=== PATIENT | female | born 1975 | race Caucasian/White ===

== ENCOUNTER 2019-12-15 01:48 | Emergency (ER) | payer OTHER ==
[~2019-12-15] VITALS: Ht 154.9 cm; Wt 72.0 kg
[2019-12-15] MEDS ORDERED: OMEP10SU2 PO (02:01)
--- NOTE | 2019-12-15 02:01 | NUR ---
Break RN: YVES JIMENEZ d/t anxiety. Pt very tearful, pacing room, needs redirection and simple verbal commands. Pt reports other episodes of anxiety for which she just "waits it out". No PRN or daily meds except prilosec. Pt reports being anemic and a loss of 2-3 pints of blood. Pt concerned she has embolism and needs to keep moving. Pt cannot tell this RN whom told her she has an embolism. Pt reports having respiratory cold.
[2019-12-15 02:18] LABS: BASOPHILS # (AUTO) 0.03 x10^3/uL (0-0.1); BASOPHILS % (AUTO) 1 % (0-1); EOSINOPHILS # (AUTO) 0.08 x10^3/uL (0-0.4); EOSINOPHILS % (AUTO) 2 % (1-7); LYMPHOCYTES # (AUTO) 1.87 x10^3/uL (1-3.4); LYMPHOCYTES % (AUTO) 42 % (22-44); MD NO; MEAN CORPUSCULAR HEMOGLOBIN 19.7 pg (27.0-34.8); MEAN CORPUSCULAR VOLUME 63.7 fL (80-100); MEAN PLATELET VOLUME 7.8 fL (7.4-10.4); MONOCYTES # (AUTO) 0.55 x10^3/uL (0.2-0.8); MONOCYTES % (AUTO) 12 % (2-9); NEUTROPHILS # (AUTO) 1.95 x10^3/uL (1.8-6.8); NEUTROPHILS % (AUTO) 44 % (42-75); PLATELET COUNT 208 x10^3/uL (130-400); RED BLOOD COUNT 5.12 x10^6/uL (3.82-5.3); RED CELL DISTRIBUTION WIDTH 18.8 % (9.6-15.2)
[2019-12-15 02:22] LABS: ALANINE AMINOTRANSFERASE 149 U/L (12-78); ALBUMIN 3.6 g/dL (3.4-5.0); ANION GAP 9 mmol/L (5-15); CHLORIDE 116 mmol/L (98-107); CREATININE 0.76 mg/dL (0.55-1.02)
[2019-12-15 02:27] LABS: ALKALINE PHOSPHATASE 75 U/L (45-117); BILIRUBIN,TOTAL 0.2 mg/dL (0.2-1.0); TOTAL PROTEIN 8.3 g/dL (6.4-8.2); TROPONIN I < 0.015 ng/mL (0.000-0.045)
[2019-12-15] MEDS ORDERED: BENZONATATE 100 MG CAPSULE ONE (03:16)
[2019-12-15] MEDS ORDERED: BENZONATATE 100 MG CAPSULE PO ONE (03:30)
[2019-12-15 03:32] LABS: AMPHETAMINE SCREEN, URINE Negative (Negative); BARBITURATE SCREEN, URINE Negative (Negative); BENZODIAZEPINE SCREEN, URINE Negative (Negative); CANNABINOID SCREEN, URINE Negative (Negative); COCAINE SCREEN, URINE Negative (Negative); METHADONE SCREEN, URINE Negative (Negative); OPIATE SCREEN, URINE Negative (Negative)
[2019-12-15 05:03] VITALS: BP 141/80
== END 2019-12-15 05:06 | disposition home or self-care (01) ==
LOC: ED 05:00
DX: R05 Cough (principal); F41.1 Generalized anxiety disorder; F10.120 Alcohol abuse with intoxication, uncomplicated; I10 Essential (primary) hypertension; Z72.9 Problem related to lifestyle, unspecified; Y90.9 Presence of alcohol in blood, level not specified
CPT/HCPCS: 36415; 71045; 80053; 80307; 84484; 85025; 93005; 99284

== ENCOUNTER 2020-04-16 19:18 | Emergency (ER) | payer BC ==
[~2020-04-16] VITALS: Ht 154.9 cm; Wt 69.0 kg
[~2020-04-16 19:18] MED LIST: OMEP10SU2 PO
[2020-04-16] MEDS ORDERED: ONDANSETRON 2MG/ML, 2ML ONE (19:52)
[2020-04-16] MEDS ORDERED: HYDROmorphone 1 MG/ML, 1ML INJ ONE (19:52)
[2020-04-16] MEDS ORDERED: SODIUM CHLORIDE FLUSH 10ML SYR IVF ONE (20:00)
[2020-04-16] MEDS ORDERED: ONDANSETRON 2MG/ML, 2ML IVPush ONE (20:00)
[2020-04-16] MEDS ORDERED: HYDROmorphone 1 MG/ML, 1ML INJ IVPush PRN (20:00)
--- NOTE | 2020-04-16 20:11 | NUR ---
THIS IS A 44 YO FEMALE C/O RIGHT KNEE PAIN AFTER SLIP[place]. PT MINIMALLY ABLE TO BEAR WEIGHT. PAIN WITH MOVEMENT AND PALPATION FROM HIP TO FOOT BUT PRIMARILY AROUND KNEE. SMALL QUARTER SIZE BRUISE TO RIGHT MID THIGH ABOVE KNEE. PT AO X 4. SKIN PWD. RESP EVEN AND UNLABORED. IV ACCESS ESTABLISHED AND PT MEDICATED ORDERED FOR PAIN. PT ON CONT BP AND SPO2 MONITORS. CALL LIGHT WITHIN REACH. WILL CONT TO MONITOR PT.
--- NOTE | 2020-04-16 20:49 | NUR ---
SLOANE KATZ AT BEDSIDE FOR RECHECK/EXPLANATION OF RESULTS.
[2020-04-16 21:21] VITALS: BP 151/87
== END 2020-04-16 21:53 | disposition home or self-care (01) ==
LOC: ED 21:43
DX: S80.01XA Contusion of right knee, initial encounter (principal); S90.01XA Contusion of right ankle, initial encounter; S90.31XA Contusion of right foot, initial encounter; I10 Essential (primary) hypertension; F17.210 Nicotine dependence, cigarettes, uncomplicated; W01.0XXA Fall on same level from slipping, tripping and stumbling without subsequent striking against object, initial encounter; Y93.89 Activity, other specified; Y92.830 Public park as the place of occurrence of the external cause; Y99.8 Other external cause status
CPT/HCPCS: 29505; 73564; 73610; 73630; 96374; 96375; 99284; J1170; J2405

== ENCOUNTER 2020-06-27 09:58 | Emergency (ER) | payer BC ==
[~2020-06-27] VITALS: Ht 154.9 cm; Wt 68.0 kg
[2020-06-27 10:00] VITALS: BP 166/90
[2020-06-27] MEDS ORDERED: LORazepam 2 MG/ML, 1ML ONE (10:39)
[2020-06-27] MEDS ORDERED: PROMETHAZINE 25 MG/ML, 1ML ONE (10:39)
[2020-06-27] MEDS ORDERED: LORazepam 2 MG/ML, 1ML IM ONE (11:00)
[2020-06-27] MEDS ORDERED: PROMETHAZINE 25 MG/ML, 1ML IM ONE (11:00)
--- NOTE | 2020-06-27 11:10 | NUR ---
pt up to restroom independently with strong steady gait. Provided with sanitation pad, and water per request. Denies further needs at this time, call light in reach.
--- NOTE | 2020-06-27 11:46 | NUR ---
PT RESTING IN BED, EYES CLOSED, NO FURTHER COMPLAINTS OF PAIN OR ANXIETY, PT NO LONGER TEARFUL. PT EDUCATED ON IMPORTANCE OF PRIMARY CARE FOLLOW UP TO MANAGE HER PANIC ATTACKS. VERBALIZES UNDERSTANDING AND DENIES ANY FURTHER NEEDS OR CONCERNS AT THIS TIME. PT TO DISCHARGE AT THIS TIME.
== END 2020-06-27 11:47 | disposition home or self-care (01) ==
LOC: ED 10:50
DX: R07.89 Other chest pain (principal); R00.0 Tachycardia, unspecified; F41.1 Generalized anxiety disorder; I11.9 Hypertensive heart disease without heart failure; R06.4 Hyperventilation; F17.200 Nicotine dependence, unspecified, uncomplicated
CPT/HCPCS: 71045; 93005; 96372; 99284; J2060; J2550

== ENCOUNTER 2020-07-02 10:08 | Emergency (ER) | payer BC ==
[~2020-07-02] VITALS: Ht 154.9 cm; Wt 67.1 kg
[2020-07-02] MEDS ORDERED: LORazepam 1MG TABLET ONE (10:36)
[2020-07-02] MEDS ORDERED: LORazepam 1MG TABLET PO ONE (11:00)
--- NOTE | 2020-07-02 11:36 | NUR ---
PT RESTING CALMLY IN BED WITH EYES CLOSED, AT BEDSIDE.
[2020-07-02 12:29] VITALS: BP 115/58
== END 2020-07-02 12:53 | disposition home or self-care (01) ==
LOC: ED 11:54
DX: F10.10 Alcohol abuse, uncomplicated (principal); F41.9 Anxiety disorder, unspecified; R07.89 Other chest pain; I10 Essential (primary) hypertension; Y90.0 Blood alcohol level of less than 20 mg/100 ml
CPT/HCPCS: 99283

== ENCOUNTER 2020-12-27 13:04 | Emergency (ER) | payer BC, OTHER ==
[~2020-12-27] VITALS: Ht 154.9 cm; Wt 61.0 kg
[2020-12-27] MEDS ORDERED: LORazepam 2 MG/ML, 1ML IVPush ONE (13:30)
[2020-12-27] MEDS ORDERED: SODIUM CHLORIDE FLUSH 10ML SYR IVF ONE (13:30)
[2020-12-27 13:40] LABS: BASOPHILS % (AUTO) 1 % (0-1); EOSINOPHILS % (AUTO) 2 % (1-7); LYMPHOCYTES % (AUTO) 36 % (22-44); MEAN CORPUSCULAR HGB CONC 31.5 g/dL (32.4-35.8); MEAN PLATELET VOLUME 7.1 fL (7.4-10.4); MONOCYTES % (AUTO) 11 % (2-9); NEUTROPHILS % (AUTO) 51 % (42-75); PLATELET COUNT 151 x10^3/uL (130-400); RED BLOOD COUNT 4.71 x10^6/uL (3.82-5.3); RED CELL DISTRIBUTION WIDTH 19.7 % (9.6-15.2)
[2020-12-27 13:52] LABS: ALBUMIN 3.7 g/dL (3.4-5.0); ANION GAP 11 mmol/L (5-15); CHLORIDE 111 mmol/L (98-107); CREATININE 0.75 mg/dL (0.55-1.02)
[2020-12-27 13:55] LABS: TROPONIN I < 0.015 ng/mL (0.000-0.045)
[2020-12-27 14:03] LABS: MD SCAN
--- NOTE | 2020-12-27 14:09 | NUR ---
First contact with pt. Pt reports that last night she was standing outside "and I guess I passed out, I woke up on the floor." Pt reports L sided JUAREZ and L arm pain after fall. Pt reports nausea as well. Pt A&O x4, denies any midline neck or back pain. Pt requesting tylenol for JUAREZ. Pt declines ativan and PIV insertion at this time. Pt states she has been diagnosed with HTN "but my doctor is trying to treat it holistically, with magneseum". Pt placed in gown and positioned for comfort in bed. Continuous oxygen and BP monitors applied, all safety measures observed.
[2020-12-27] MEDS ORDERED: ACETAMINOPHEN 325 MG TABLET ONE (14:44)
--- NOTE | 2020-12-27 14:47 | NUR ---
Dr. Coleman at bedside to evaluate pt. Pt requesting tylenol for her JUAREZ. Orders recieved from Dr. Coleman for tylenol 650mh PO. Pt medicated per order.
[2020-12-27 15:22] VITALS: BP 175/85
[2020-12-27] MEDS ORDERED: ACETAMINOPHEN 325 MG TABLET PO ONE (15:30)
== END 2020-12-27 15:23 | disposition home or self-care (01) ==
LOC: ED 15:15
DX: D64.9 Anemia, unspecified (principal); R51.9 Headache, unspecified; R07.9 Chest pain, unspecified; I10 Essential (primary) hypertension; R53.1 Weakness; R94.31 Abnormal electrocardiogram [ECG] [EKG]; R42 Dizziness and giddiness
CPT/HCPCS: 36415; 71045; 80048; 82040; 83880; 84484; 85025; 93005; 99285

== ENCOUNTER 2021-02-12 22:24 | Emergency (ER) | payer SELFPAY ==
[~2021-02-12] VITALS: Ht 154.9 cm; Wt 65.0 kg
--- NOTE | 2021-02-12 23:13 | NUR ---
LABS DRAWN AND SENT
--- NOTE | 2021-02-12 23:21 | NUR ---
PT IN ROOM AT THIS TIME, PRESENTS TO ED DUE TO RIGHT SIDED FLANK PAIN, TRICKLING URINATING AND PAIN RADIATES DOWN INTO GROIN. REPORTS IT STARTED BACK PAIN YESTERDAY AND THEN PROGRESSED TO FRONT LOWER RIGHT QUADRANT AND GROIN, PT CRYING AND MOAIN IN ROOM, IN THE POSITION, VOMITTING DUE TO PAIN. FABIO BARNES AT . PT PLACED ON SPO2/BP/ECG MONITORING. WCTM. BED IN LOWEST, RAILS ENGAGED, CALL LIGHT ON LAP.
[2021-02-12] MEDS ORDERED: KETOROLAC 30 MG/1 ML ONE (23:24)
[2021-02-12] MEDS ORDERED: KETOROLAC 30 MG/1 ML IVPush ONE (23:30)
[2021-02-12 23:35] LABS: BASOPHILS % (AUTO) 1 % (0-1); EOSINOPHILS % (AUTO) 2 % (1-7); LYMPHOCYTES % (AUTO) 52 % (22-44); MEAN CORPUSCULAR HEMOGLOBIN 21.6 pg (27.0-34.8); MEAN CORPUSCULAR HGB CONC 31.5 g/dL (32.4-35.8); MEAN PLATELET VOLUME 7.6 fL (7.4-10.4); MONOCYTES % (AUTO) 9 % (2-9); NEUTROPHILS % (AUTO) 36 % (42-75); PLATELET COUNT 137 x10^3/uL (130-400); RED BLOOD COUNT 5.09 x10^6/uL (3.82-5.3); RED CELL DISTRIBUTION WIDTH 18.9 % (9.6-15.2)
[2021-02-12 23:38] LABS: MD NO
--- NOTE | 2021-02-12 23:41 | NUR ---
pt medicated per jan, states "my pain is significantly better, i still have pressure but its a lot better". pt up to restroom for ua, nad, wctm. waiting for labs results and ct
[2021-02-12 23:42] LABS: ALBUMIN 3.8 g/dL (3.4-5.0); ANION GAP 7 mmol/L (5-15); CALCIUM 8.5 mg/dL (8.5-10.1); CHLORIDE 110 mmol/L (98-107); CREATININE 0.74 mg/dL (0.55-1.02)
[2021-02-13 00:19] LABS: MICROSCOPIC NOT IND
--- NOTE | 2021-02-13 00:38 | NUR ---
Break RN: patient returned from CT. No complaints at this time. Resting in gurney. Respirations even and unlabored.
[2021-02-13] MEDS ORDERED: OMNIPAQUE 350 MG/ML, 100ML BOTTLE ONE (00:58)
--- NOTE | 2021-02-13 01:09 | NUR ---
PT RESTING ON GURNEY, NAD, ON LEFT SIDE, EYES CLOSED, EVEN AND UNLABORED RESPIRATIONS, APPEARS COMFORTABLE, AWAITING CT READ, WCTM.
[2021-02-13 02:01] VITALS: BP 163/81
--- NOTE | 2021-02-13 02:02 | NUR ---
Patient given discharge instructions and they have confirmed that they understand the instructions. Patient ambulatory with steady gait. nad, denies additional questions or needs, no personal belongings left in room after dc.
== END 2021-02-13 02:16 | disposition home or self-care (01) ==
LOC: ED 02-13 02:00
DX: K59.00 Constipation, unspecified (principal); R10.84 Generalized abdominal pain; F17.210 Nicotine dependence, cigarettes, uncomplicated; I10 Essential (primary) hypertension
CPT/HCPCS: 36415; 74177; 80048; 81003; 82040; 84703; 85025; 87806; 96374; 99285; 99406; J1885; Q9967; G0475

== ENCOUNTER 2021-03-14 15:52 | Inpatient (IN) | payer OTHER ==
[~2021-03-14] VITALS: Ht 154.9 cm; Wt 65.0 kg
[2021-03-14] VITALS (7 sets, daily range): BP systolic 162–188; BP diastolic 60–83
--- NOTE | 2021-03-14 16:33 | NUR ---
SHEET METAL MECHANIC: PT TO ROOM FROM LOBBY
[2021-03-14] MEDS ORDERED: ONDANSETRON 2MG/ML, 2ML ONE (17:20)
[2021-03-14] MEDS ORDERED: KETOROLAC 30 MG/1 ML ONE (17:20)
[2021-03-14] MEDS ORDERED: SODIUM CHLORIDE FLUSH 10ML SYR IVF ONE (17:30)
[2021-03-14] MEDS ORDERED: SODIUM CHLORIDE 0.9% 1,000ML IV ONE (17:30)
[2021-03-14] MEDS ORDERED: ONDANSETRON 2MG/ML, 2ML IVPush ONE (17:30)
[2021-03-14] MEDS ORDERED: KETOROLAC 30 MG/1 ML IVPush ONE (17:30)
[2021-03-14 17:51] LABS: BASOPHILS % (AUTO) 1 % (0-1); EOSINOPHILS % (AUTO) 1 % (1-7); LYMPHOCYTES % (AUTO) 29 % (22-44); MEAN CORPUSCULAR HEMOGLOBIN 21.1 pg (27.0-34.8); MEAN CORPUSCULAR HGB CONC 30.4 g/dL (32.4-35.8); MEAN PLATELET VOLUME 6.5 fL (7.4-10.4); MONOCYTES % (AUTO) 10 % (2-9); NEUTROPHILS % (AUTO) 59 % (42-75); PLATELET COUNT 172 x10^3/uL (130-400); RED BLOOD COUNT 3.15 x10^6/uL (3.82-5.3); RED CELL DISTRIBUTION WIDTH 18.1 % (9.6-15.2)
[2021-03-14 17:57] LABS: MD MORPH REVIEW ONLY
[2021-03-14 18:03] LABS: ALBUMIN 3.7 g/dL (3.4-5.0); ANION GAP 8 mmol/L (5-15); CALCIUM 8.1 mg/dL (8.5-10.1); CHLORIDE 112 mmol/L (98-107); CREATININE 0.62 mg/dL (0.55-1.02)
[2021-03-14 18:08] LABS: ALKALINE PHOSPHATASE 61 U/L (45-117); BILIRUBIN,TOTAL 0.4 mg/dL (0.2-1.0)
[2021-03-14 18:16] LABS: ANISOCYTOSIS 1+
[2021-03-14 18:17] LABS: HYPOCHROMIA 2+; MICROCYTOSIS 2+
[2021-03-14 18:18] LABS: <PLATELET ESTIMATE> ADEQUATE; OVALOCYTES 1+; POLYCHROMASIA 1+
[2021-03-14 18:19] LABS: <PLT MORPHOLOGY> NORMAL PLT MORPH
[2021-03-14 18:37] LABS: ALANINE AMINOTRANSFERASE 28 U/L (12-78)
[2021-03-14] MEDS ORDERED: MORPHINE SULFATE 4 MG/ML, 1ML ONE ×2 (19:09→19:42)
[2021-03-14] MEDS: MORPHINE SULFATE 4 MG/ML, 1ML IVPush PRN ×2 (19:12→20:08)
--- NOTE | 2021-03-14 19:21 | NUR ---
REPORT TO EMILEE FRANCO.
[2021-03-14] MEDS ORDERED: DIPHENHYDRAMINE 50 MG/ML, 1ML ONE (19:50)
--- NOTE | 2021-03-14 20:00 | NUR ---
BLOOD TRANSFUSION STARTED AT 1928. PT STARTED TO COMPLAIN OF LOWER BACK PAIN AND CHEST PAIN AT 1942. TRANSFUSION STOPPED, PT GIVEN 50MG OF BENADRYL, DR. PAGE AND BLOOD BANK NOTIFIED. PT ALSO HAVING MILD EYE LID SWELLING. PT RESTING IN [facility], MONITORING IN PLACE, TM.
[2021-03-14] MEDS ORDERED: DIPHENHYDRAMINE 50 MG/ML, 1ML IV ONE (21:00)
[2021-03-14 21:05] LABS: MICROSCOPIC AUTO
[2021-03-14] MEDS ORDERED: CEFTRIAXONE 1,000 MG in DEXTROSE 5% 50 ML IVPB ONE (22:30)
[2021-03-15] VITALS (8 sets, daily range): BP systolic 145–174; BP diastolic 70–106
[2021-03-15] MEDS ORDERED: DOCUSATE 100 MG CAPSULE PO PRN
[2021-03-15] MEDS ORDERED: POLYETHYLENE GLYCOL 17 GM PACKET PO PRN
[2021-03-15] MEDS ORDERED: OXYcodone IR 5MG TABLET PO PRN
[2021-03-15] MEDS ORDERED: ONDANSETRON ODT 4 MG PO PRN
[2021-03-15] MEDS ORDERED: hydrALAzine 20 MG/ML, 1ML IVPush PRN
[2021-03-15] MEDS ORDERED: BISACODYL 10 MG SUPP PR PRN
[2021-03-15] MEDS ORDERED: ONDANSETRON 2MG/ML, 2ML IVPush PRN
[2021-03-15] MEDS ORDERED: PROMETHAZINE 25 MG/ML, 1ML IM PRN
[2021-03-15] MEDS ORDERED: OMEP20TA62 PO (00:48)
[2021-03-15] MEDS: CEFTRIAXONE 1,000 MG in DEXTROSE 5% 50 ML IVPB SCH (01:44)
[2021-03-15] MEDS: LOSARTAN 25MG TABLET PO SCH ×3 (01:44→19:31)
[2021-03-15 05:10] LABS: BASOPHILS % (AUTO) 1 % (0-1); EOSINOPHILS % (AUTO) 1 % (1-7); LYMPHOCYTES % (AUTO) 29 % (22-44); MEAN CORPUSCULAR HEMOGLOBIN 23.4 pg (27.0-34.8); MEAN CORPUSCULAR HGB CONC 31.7 g/dL (32.4-35.8); MEAN PLATELET VOLUME 6.8 fL (7.4-10.4); MONOCYTES % (AUTO) 9 % (2-9); NEUTROPHILS % (AUTO) 61 % (42-75); PLATELET COUNT 128 x10^3/uL (130-400); RED BLOOD COUNT 3.45 x10^6/uL (3.82-5.3); RED CELL DISTRIBUTION WIDTH 21.8 % (9.6-15.2)
[2021-03-15 05:14] LABS: MD NO
[2021-03-15 05:23] LABS: ALBUMIN 3.4 g/dL (3.4-5.0); ANION GAP 10 mmol/L (5-15); CALCIUM 7.3 mg/dL (8.5-10.1); CHLORIDE 107 mmol/L (98-107)
[2021-03-15 05:32] LABS: ALANINE AMINOTRANSFERASE 27 U/L (12-78); ALKALINE PHOSPHATASE 59 U/L (45-117); BILIRUBIN,TOTAL 0.7 mg/dL (0.2-1.0); CHOLESTEROL, TOTAL 230 mg/dL (140-239); HDL CHOL % 33 % (28-40); HDL CHOLESTEROL (DIRECT) 77 mg/dL (40-60); LDL CHOLESTEROL,CALCULATED 131 mg/dL (54-169); LDL/HDL RATIO 1.7 (0.5-3.0); TOTAL PROTEIN 7.9 g/dL (6.4-8.2); TRIGLYCERIDES 112 mg/dL (50-200); VLDL CHOLESTEROL 22 mg/dL (0-25)
[2021-03-15 05:54] LABS: TROPONIN I < 0.015 ng/mL (0.000-0.045)
[2021-03-15] MEDS: LABETALOL 5MG/ML, 20ML IVPush PRN (06:00)
[2021-03-15] MEDS: SODIUM CHLORIDE 0.9% 1,000 ML IV SCH ×2 (08:59)
[2021-03-15] MEDS: ACETAMINOPHEN 325 MG TABLET PO PRN ×2 (09:00→19:31)
[2021-03-15 13:41] LABS: TROPONIN I < 0.015 ng/mL (0.000-0.045)
[2021-03-15] MEDS ORDERED: OMNIPAQUE 350 MG/ML, 75ML BOTTLE ONE (22:02)
[2021-03-16 00:30] VITALS: BP_SYST 165; BP_SYST 186; BP_DIAS 90; BP_DIAS 97
[2021-03-16] MEDS: LABETALOL 5MG/ML, 20ML IVPush PRN (00:41)
[2021-03-16 01:19] VITALS: BP 161/89
[2021-03-16] MEDS: CEFTRIAXONE 1,000 MG in DEXTROSE 5% 50 ML IVPB SCH (01:25)
[2021-03-16 06:49] VITALS: BP 167/88
[2021-03-16] MEDS: LOSARTAN 25MG TABLET PO SCH (07:22)
[2021-03-16 07:54] LABS: BASOPHILS % (AUTO) 0 % (0-1); EOSINOPHILS % (AUTO) 1 % (1-7); LYMPHOCYTES % (AUTO) 23 % (22-44); MEAN CORPUSCULAR HEMOGLOBIN 23.2 pg (27.0-34.8); MEAN CORPUSCULAR HGB CONC 31.7 g/dL (32.4-35.8); MEAN PLATELET VOLUME 7.1 fL (7.4-10.4); MONOCYTES % (AUTO) 9 % (2-9); NEUTROPHILS % (AUTO) 67 % (42-75); PLATELET COUNT 120 x10^3/uL (130-400); RED BLOOD COUNT 3.83 x10^6/uL (3.82-5.3); RED CELL DISTRIBUTION WIDTH 21.8 % (9.6-15.2)
[2021-03-16 07:56] LABS: MD NO
[2021-03-16 07:59] LABS: ALANINE AMINOTRANSFERASE 21 U/L (12-78); ALBUMIN 3.3 g/dL (3.4-5.0); ANION GAP 6 mmol/L (5-15); CALCIUM 8.3 mg/dL (8.5-10.1); CHLORIDE 106 mmol/L (98-107); CREATININE 0.59 mg/dL (0.55-1.02)
[2021-03-16 08:02] LABS: ALKALINE PHOSPHATASE 55 U/L (45-117); BILIRUBIN,TOTAL 0.5 mg/dL (0.2-1.0); TOTAL PROTEIN 7.4 g/dL (6.4-8.2)
[2021-03-16] MEDS ORDERED: LOSA25TA25 PO (12:03)
[2021-03-16] MEDS ORDERED: CEPH-376 PO (12:10)
[2021-03-16] MEDS ORDERED: POTASSIUM CHLORIDE 20 MEQ PACKET PO ONE (12:30)
[2021-03-16 13:03] VITALS: BP 183/80
== END 2021-03-16 14:07 | disposition home or self-care (01) | DRG 690 ==
LOC: ED 18:18 → EDIP 23:07 → 4NE 03-15 00:26 → DCLOUNGE 03-16 13:54
PROVIDERS: ADMIT Internal Medicine; ATTEND Internal Medicine
PROC: 30233N1 Transfusion of Nonautologous Red Blood Cells into Peripheral Vein, Percutaneous Approach (ICD-10-PCS; principal; 2021-03-14)
DX: N12 Tubulo-interstitial nephritis, not specified as acute or chronic (principal); D50.9 Iron deficiency anemia, unspecified; D69.6 Thrombocytopenia, unspecified; E83.39 Other disorders of phosphorus metabolism; E87.6 Hypokalemia; F17.210 Nicotine dependence, cigarettes, uncomplicated; I10 Essential (primary) hypertension; K76.0 Fatty (change of) liver, not elsewhere classified; N92.0 Excessive and frequent menstruation with regular cycle; Z83.3 Family history of diabetes mellitus; N83.202 Unspecified ovarian cyst, left side; E78.5 Hyperlipidemia, unspecified; Z98.51 Tubal ligation status
CPT/HCPCS: 36415; 36430; 71045; 71275; 72072; 74176; 76700; 76830; 80053; 80061; 81001; 83036; 83690; 83735; 84100; 84443; 84484; 84703; 85025; 86078; 86850; 86900; 86923; 87077; 87086; 87186; 93306; 93356; 96374; 96375; 99285; G0378; J0696; J1885; Q9967; J1200; J2270; J7030; P9016

== ENCOUNTER 2021-06-11 14:13 | Emergency (ER) | payer SELFPAY ==
[~2021-06-11] VITALS: Ht 154.9 cm; Wt 61.0 kg
[~2021-06-11 14:13] MED LIST changes: +CEPH-376 PO; +LOSA25TA25 PO; +OMEP20TA62 PO
[2021-06-11 14:41] VITALS: BP 150/80
--- NOTE | 2021-06-11 14:41 | NUR ---
PT AMBULATORY TO ROOM 21 W/ C/O L SIDE CP WORSE ON PALPATION AND DULL. PT ALSO C/O WEAKNESS OVER THE LAST FEW WEEKS. PT ALSO STATES SHE IS ANEMIC. PT PINK, WARM, AND DRY. PT RESTING ON GURNEY. NADN. MONITORS APPLIED. VSS. WARM BLANKET PROVIDED. CALL LIGHT IN REACH. ERP DR. ROSE AT BEDSIDE FOR EVAL.
[2021-06-11] MEDS ORDERED: ACETAMINOPHEN 500 MG TABLET ONE (14:50)
[2021-06-11] MEDS ORDERED: ACETAMINOPHEN 500 MG TABLET PO ONE (15:00)
== END 2021-06-11 15:27 | disposition home or self-care (01) ==
LOC: ED 14:46
DX: R07.2 Precordial pain (principal); M79.18 Myalgia, other site; I10 Essential (primary) hypertension; R94.31 Abnormal electrocardiogram [ECG] [EKG]
CPT/HCPCS: 93005; 99283

== ENCOUNTER 2021-06-14 07:36 | Emergency (ER) | payer SELFPAY ==
[~2021-06-14] VITALS: Ht 154.9 cm; Wt 60.9 kg
[2021-06-14] MEDS ORDERED: KETOROLAC 30 MG/1 ML IM ONE (08:00)
[2021-06-14] MEDS ORDERED: KETOROLAC 30 MG/1 ML ONE (08:30)
--- NOTE | 2021-06-14 08:35 | NUR ---
FIRST CONTACT: "Everything hurts, my legs, back, abdomen. When I woke up I couldn't breathe. It feels like I swallowed razor blades" PT reports symptoms started at 5 am this morning. PT TO BED WITH STEADY GAIT. ATTACHED TO MONITORS. VSS. CRYING OUT IN PAIN. PT MEDIATED PER EMAR FOR PAIN.
[2021-06-14 08:39] LABS: ALANINE AMINOTRANSFERASE 116 U/L (12-78); ALBUMIN 3.6 g/dL (3.4-5.0); ANION GAP 11 mmol/L (5-15); CALCIUM 8.5 mg/dL (8.5-10.1); CHLORIDE 110 mmol/L (98-107); CREATININE 0.59 mg/dL (0.55-1.02)
[2021-06-14 08:42] LABS: ALKALINE PHOSPHATASE 57 U/L (45-117); BILIRUBIN,TOTAL 0.4 mg/dL (0.2-1.0); TOTAL PROTEIN 8.3 g/dL (6.4-8.2)
--- NOTE | 2021-06-14 08:45 | NUR ---
PT GIVEN HOT WATER AND WARM BLANKET REQUESTED. YASMANY JASMINE OKAY WITH WATER INTAKE. VSS.
[2021-06-14 09:01] LABS: BASOPHILS % (AUTO) 1 % (0-1); EOSINOPHILS % (AUTO) 1 % (1-7); LYMPHOCYTES % (AUTO) 37 % (22-44); MEAN CORPUSCULAR HEMOGLOBIN 22.6 pg (27.0-34.8); MEAN CORPUSCULAR HGB CONC 31.2 g/dL (32.4-35.8); MONOCYTES % (AUTO) 11 % (2-9); NEUTROPHILS % (AUTO) 50 % (42-75); PLATELET COUNT 76 x10^3/uL (130-400); RED BLOOD COUNT 4.48 x10^6/uL (3.82-5.3); RED CELL DISTRIBUTION WIDTH 20.1 % (9.6-15.2)
--- NOTE | 2021-06-14 09:08 | NUR ---
PT OBSERVED TO RESTING WHEN THIS RN WALK BY HOWEVER WHEN STAFF ENTERS ROOM PATIENT BECOMES ANXIOUS STATING SHES "LOSING CONTROL" AND IS "TASTING METAL IN MOUTH". PROVIDER NOTIFED. VSS. WILL CONTINUE TO MONITOR.
--- NOTE | 2021-06-14 09:23 | NUR ---
DR. QUINTANA TO BEDSIDE
[2021-06-14 10:01] VITALS: BP 156/78
[2021-06-14 10:04] LABS: RAPID INFLUENZA A Negative (Negative); RAPID INFLUENZA B Negative (Negative)
--- NOTE | 2021-06-14 10:11 | NUR ---
Patient given discharge instructions and they have confirmed that they understand the instructions. Patient ambulatory with steady gait. NAD, all questions answered appropriately, denies additional needs at this time. No personal belongings left in room after discharge.
== END 2021-06-14 10:12 | disposition home or self-care (01) ==
LOC: ED 07:43
DX: J06.9 Acute upper respiratory infection, unspecified (principal); Z20.822 Contact with and (suspected) exposure to COVID-19; B34.9 Viral infection, unspecified; M79.10 Myalgia, unspecified site; D69.3 Immune thrombocytopenic purpura; D63.8 Anemia in other chronic diseases classified elsewhere; R94.5 Abnormal results of liver function studies; R07.89 Other chest pain; R94.31 Abnormal electrocardiogram [ECG] [EKG]; I10 Essential (primary) hypertension; Z87.891 Personal history of nicotine dependence
CPT/HCPCS: 36415; 71045; 80053; 85025; 87400; 93005; 96372; 99285; J1885; U0003; U0005